=== PATIENT | female | born 1960 | race Caucasian/White ===

== ENCOUNTER 2025-02-25 18:06 | Emergency (ER) | payer BC, SELFPAY ==
--- NOTE | ~2025-02-25 | XR_ITS ---
CLINICAL HISTORY: foosh 4 view right wrist Comparison: None provided Findings: Small bony fragment of the dorsal aspect of the wrist. Mild degenerative change of the 1st carpometacarpal joint. No radiopaque foreign body. IMPRESSION: Small bony fragment of the dorsal aspect of the wrist. Triquetral fracture can not be excluded. This document has been electronically signed by: Mauro Galdamez MD on 02/25/2025 19:26:26
--- NOTE | ~2025-02-25 | XR_ITS ---
CLINICAL HISTORY: foosh 3 view right hand Comparison: None provided Findings: Bones intact. No dislocations. Mild degenerative changes of the DIP joint. No erosions. No radiopaque foreign body. IMPRESSION: 1. No acute findings This document has been electronically signed by: Mauro Galdamez MD on 02/25/2025 19:28:22
[2025-02-25 18:31] VITALS: BP 168/75; PULSE 78; RESP 16; TEMP 36.8; O2SAT 97; BMI 39.0
--- NOTE | 2025-02-25 18:37 | ED_ITS ---
HPI - Extremity Injury (Upper) General Chief Complaint: Extremity Injury, Upper Stated Complaint: ? Rt hand broken Time Seen by Provider: 02/25/25 19:37 Source: patient and RN notes reviewed Limitations: no limitations History of Present Illness HPI narrative: 64-YEAR-OLD female presents for evaluation of right wrist pain. Patient states she was walking down a hill that had gravel when the patient slipped and fell forward. Patient states she landed on her outstretched arms. This occurred at approximately 11:00 a.m.. She denies striking her head. There was no prodromal symptoms. She is right-hand dominant. Patient reports pain to the right wrist. It is worse with movement. She denies any previous injury. Patient is otherwise feeling well. 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 4/5 on the right secondary to pain. There is soft tissue swelling surrounding the dorsum of the right wrist with ecchymosis. Pronation and supination is difficult secondary to pain. Capillary refills less than 2 seconds. Radial pulses are +2 and equal bilaterally. Full range of motion of all digits. No evidence of tendon involvement. Full range of motion at the elbow. Course Course Course Narrative: 02/25/25 1837 WILLIAM Shabazz This is a Rapid Medical Examination (RME) performed by Isabella Concepcion PA-C in triage. Full HPI, ROS, assessment and treatment plan per primary provider in the Main ED. Hx: 64 yo right hand dominant F here for eval of right hand/wrist pain s/p FOOSH this morning while camping. denies HS or LOC. no thinners. baby aspirin daily. +numbness/tingling to fingers. PE/vitals: deformity to right wrist. Plan: xrs Reevaluation(s) Reevaluation #1: Patient tolerated splinting without difficulty. CMS is intact. Patient refused any additional analgesia states that she would like to continue with Tylenol. Orthopedic referral provided. Reviewed all discharge instructions. No further questions at this time. Medical Decision Making Medical Decision Making MDM Narrative: 64-year-old female with right wrist pain, x-ray concerning for a triquetral fracture. Given the patient's symptoms and x-ray findings, we will place patient in volar splint. Differential Diagnosis Differential Diagnoses: The differential diagnosis associated with the presentation includes Fracture Contusion Sprain Dislocation Radiology Impression Discussion of test interpretation with radiology: I have reviewed the radiologist's reading. Prescription Management I considered prescription management with: Pain Medication ( patient refused) Procedures Orthopedic Splinting/Casting Injury #1: Side: right Upper Extremity Injury Location: wrist Upper Extremity Immobilizer: volar splint and wrist splint Discharge Plan Discharge Clinical Impression: Fracture of wrist Patient Disposition: Home, Self-Care Instructions: Wrist Fracture in Adults (ED) Additional Instructions: Your x-ray of your wrist today is concerning for a triquetral fracture, a small bone in your wrist. Splint as directed. Do not remove or get wet. Sling for comfort. Remove your arm regularly to avoid stiffness. Rest. Ice. Elevate. Continue Tylenol as directed available [id number]. Follow up with orthopedic referral. Call tomorrow to schedule follow up appointment. Follow-up with your primary care provider. Call this week to schedule a follow- up appointment. Return to the emergency department if you have any worsening of symptoms, or any concerns. Get well soon! Referrals: [facility] [Provider Group] Referral Note: Right triquetral fracture Print Language: Irish
[2025-02-25 20:25] VITALS: BP 168/75; PULSE 78; RESP 16; TEMP 36.8; O2SAT 97
== END 2025-02-25 20:25 | disposition home or self-care (01) ==
PROVIDERS: Emergency Provider Emergency Medicine; PCP Internal Medicine
DX: S62.101A Fracture of unspecified carpal bone, right wrist, initial encounter for closed fracture (principal); W01.0XXA Fall on same level from slipping, tripping and stumbling without subsequent striking against object, initial encounter; Y93.9 Activity, unspecified; Y92.9 Unspecified place or not applicable; Y99.9 Unspecified external cause status
CPT/HCPCS: 73110; 73130; 99282; 99284

== ENCOUNTER → 2025-02-25 18:38 | Outpatient (BNV) | payer SELFPAY | PROVIDERS: Emergency Provider Emergency Medicine; PCP Internal Medicine; Visit Provider Nuclear Medicine | DX: M25.531 Pain in right wrist (principal); W18.39XA Other fall on same level, initial encounter | CPT/HCPCS: 73110; 73130 ==

== ENCOUNTER 2025-03-05 08:57 | Outpatient (AMB) | payer BC, SELFPAY ==
--- NOTE | 2025-03-05 08:20 | MHC.OFFVIS ---
Vital Signs 03/05/25 09:09 Height 5 ft 3 in Weight 220 lb BMI 39.0 Intake Visit Reasons: FC-right Fracture of wrist 02/25/25 Intake Note: Leann 64 yr old right hand dominant female presents today for a ED follow up visit from 02/25/25. As per ED note, patient states she was walking down a hill that had gravel when the patient slipped and fell forward. Patient states she landed on her outstretched arms injuring her right hand. Seen in ED where there was concerns for a triquetral fracture. Patient was splinted and referred with Dr Cole for further since. Currently states after removing her splint for xrays she feels mild pain, numbness in her middle and index finger and weakness. She is able to make a fist with tenderness/mild pain. Allergies No Known Allergies Allergy (Verified 03/05/25 09:11) HPI HPI FC-right Fracture of wrist 02/25/25: Details: Leann is a 64 year old right hand dominant Diabetic woman presents for a right Triquetral fracture, S/P fall, DOI: 02/25/25, after slipping on gravel. She was seen in the ED and placed in a volar wrist splint. She complains of mild pain which began when her splint was removed. She also complains of new numbness in her index & middle fingers, which began after her fall, along with some weakness. She says she has some mild intermittent numbness in her thumb, but this is not as bothersome. 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 Review of Systems Const All systems reviewed & are unremarkable except as noted in HPI and below Physical Exam Vital Signs: BMI result Body Mass Index 39.0 Const General: cooperative, healthy appearing and no acute distress Orientation/consciousness: patient oriented x3 HEENT Head: Yes normocephalic and Yes atraumatic Eyes EOM: EOMs intact bilaterally Resp Effort & Inspection: normal respiratory effort and able to speak in complete sentences Cardio Jugular venous distension: no JVD Skin General skin exam: turgor normal Rashes: no rashes Neuro General: patient oriented x3 Extrem Other: Evaluation of Right Upper Extremity: The patient is alert, oriented, and in no acute distress Neuro: Median, Ulnar, Radial nerves motor and sensory intact and sensation is normal to the tips of all digits Vascular: Cap refill brisk ROM: She can make a fist and extend all her digits No pain with elbow ROM Skin: No lacerations or abrasions or evidence of open fracture General: Resolving ecchymosis. Resolving swelling No Erythema or evidence of infection. Most tender over the triquetrum Tender over the 4th metacarpal base No tenderness over the distal radius, DRUJ, and distal ulna DRUJ stable on exam No snuffbox or scaphoid tubercle tenderness Minimal tenderness of the base of the 5th metacarpal No tenderness in line with the thumb, or of the 2nd and 3rd metacarpals or any of the fingers. Radiographs: 3 views of the right hand were taken and viewed by me today in clinic. 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 They show a triquetral fracture, & a nondisplaced transverse fracture line at the base of the 4th metacarpal. Psych Appearance: grossly normal Affect: normal affect Attitude: cooperative Office Procedures AMB Fracture Care Details: Fracture care triquetrum [id number], and also fracture care 4th metacarpal 11952 Fracture Billing Code: Fracture Billing Code Assessment & Plan Assessment & Plan (1) Fracture of triquetrum of right wrist: Code(s): S62.111A - Displaced fracture of triquetrum [cuneiform] bone, right wrist, initial encounter for closed fracture Category: Medical (2) Fracture of base of fourth metacarpal bone: Code(s): S62.318A - Displaced fracture of base of other metacarpal bone, initial encounter for closed fracture Category: Medical (3) Numbness and tingling in right hand: Code(s): R20.0 - Anesthesia of skin; R20.2 - Paresthesia of skin Category: Medical (4) Diabetes mellitus: Code(s): E11.9 - Type 2 diabetes mellitus without complications Category: Medical Plan Assessment & Plan: 1. Right Triquetral fracture S/P fall, DOI: 02/25/25 2. Right 4th metacarpal base fracture, nondisplaced S/P fall, DOI: 02/25/25 3. Right hand numbness Primarily the index & middle fingers, less bothersome in the thumb Symptoms intermittent, began following her fall DOI: 02/25/25 I educated her about these conditions I discussed operative and non-operative treatment options We will manage this conservatively If her symptoms of numbness does not improve in the next 4-6 weeks, she can follow up to discuss a possible NCS She was fitted for a velcro wrist splint, to be worn with daily activities, for the next 3 weeks. She can remove this when at home at rest. I discussed activity modifications, she is to lift nothing heavier than a cellphone for the next 7 weeks. She is to avoid any heavy impact activities or falls She will perform gentle finger & wrist ROM exercises at home, out of her splint She will follow up in 3 weeks, with X-rays, 3V R wrist, OOP Scribed for Racheal Cole MD by Eduard Cassidy, medical receptionist assistant, on 03/05/25 at 9:20 AM, EST. Orders: Orders XR hand RT min 3V Today M79.641 - Pain in right hand Coding Level of Care Code New Pt Level 4 (74419) Diagnoses Fracture of triquetrum of right wrist S62.111A Fracture of base of fourth metacarpal bone S62.318A Numbness and tingling in right hand R20.0; R20.2 Diabetes mellitus E11.9 CPT Codes Fracture Care - Fracture Billing Code: Fracture Billing Code ([id number])
[2025-03-05 09:09] VITALS: BMI 39.0
--- OUTSIDE RECORDS SUMMARY | 2025-03-05 09:23 | XMS_ITS | Clinical Summary ---
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 7 Active aspirin 81 mg EC tablet Take by mouth 1 (one) time each day. Active lancets lancets ONE TOUCH ULTRASOFT LANCETS Misc Test blood sugar 2 times daily 4 Active glucose blood test strip glucose blood test strips (OneTouch Ultra) strip TEST BLOOD SUGAR 3 TIMES A DAY DIRECTED 4 Active amLODIPine (NORVASC) 5 mg tablet Take 1 tablet (5 mg total) by mouth 1 (one) time each day. 90 each 3 5 01/11/20 26 Active atorvastatin (LIPITOR) 10 mg tablet Take 1 tablet (10 mg total) by mouth 1 (one) time each day. 90 each 5 01/11/20 26 Active glipiZIDE (GLUCOTROL XL) 2.5 mg 24 hr tablet Take 1 tablet (2.5 mg total) by mouth 1 (one) time each day. 90 each 3 5 01/11/20 26 Active lisinopril (PRINIVIL,ZESTR IL) 40 mg tablet Take 1 tablet (40 mg total) by mouth 1 (one) time each day. 90 each 3 5 01/11/20 26 Active metFORMIN (GLUCOPHAGE) 500 mg tablet Take 2 tablets (1,000 mg total) by mouth 2 (two) times a day with meals. 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 Instructed to avoid nephrotoxics, red meat. Follow up with nephrology Dr. Gardiner. 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 Instructed to avoid nephrotoxics, red meat. Follow up with nephrology Dr. Gardiner. Microalbuminuria 10/20/2010 Kidney donor 03/29/2007 Overview (06/30/2024): donated kidney to brother in 1983 DM (diabetes mellitus), type 2 with renal complications ([facility] V24, [facility] V28) 08/31/2005 Assessment & Plan (01/10/2025 9:18 AM EDT): Good control of diabetes. A1C: 6.3. Patient will continue with yearly Podiatric and Ophthomologic evaluations. Will continue Angiotensin Converting Enzyme Inhibitor for renal protection. Continue Glipizide, metformin. We will check hemoglobin A1c, CMP, before her next visit. Orders: Comprehensive metabolic panel; Future Hemoglobin A1c; Future Lipid panel with reflex to direct LDL; Future Assessment & Plan (09/07/2024 9:31 AM EST): Good control of diabetes. A1C: 6.7. Patient will continue with yearly Podiatric and Ophthomologic evaluations.Will continue Angiotensin Converting Enzyme Inhibitor for renal protection. Continue Glipizide, metformin. We will check hemoglobin A1c, CMP, microalbuminuria before her next visit. Orders: Comprehensive metabolic panel; Future Hemoglobin A1c; Future Lipid panel with reflex to direct LDL; Future Microalbumin creatinine urine ratio; Future Hypertension 08/31/2005 Assessment & Plan (01/10/2025 9:00 AM EDT): The patient's antihypertensive regimen is based on their underlying medical issues. At the time of this visit, the blood pressure is well controlled on lisinopril, amlodipine. The patient is instructed to follow a low sodium diet. Orders: Comprehensive metabolic panel; Future Hemoglobin A1c; Future Lipid panel with reflex to direct LDL; Future Assessment & Plan (09/07/2024 9:20 AM EST): The patient's antihypertensive regimen is based on their underlying medical issues. At the time of this visit, the blood pressure is well controlled on lisinopril, amlodipine. The patient is instructed to follow a low sodium diet. Orders: Comprehensive metabolic panel; Future Hemoglobin A1c; Future Lipid panel with reflex to direct LDL; Future Microalbumin creatinine urine ratio; Future Pure hypercholesterolemia 08/31/2005 Assessment & Plan (01/10/2025 9:18 AM EDT): Given the patients cardiac risk profile, the patient requires an LDL cholesterol of less than 70. I have instructed the patient on the principles of a low cholesterol diet and the importance of regular exercise. Continue atorvastatin 10 mg a day. Will recheck a lipid panel before her next visit. Orders: Comprehensive metabolic panel; Future Hemoglobin A1c; Future Lipid panel with reflex to direct LDL; Future Assessment & Plan (09/07/2024 9:20 AM EST): Given the patients cardiac risk profile, the patient requires an LDL cholesterol of less than 70. I have instructed the patient on the principles of a low cholesterol diet and the importance of regular exercise. Continue atorvastatin 10 mg a day. Encounters Date Type Department Care Team Description 02/26/2025 3:00 PM EDT [facility] [address] [place] [phone] Jemal Gardiner MD Stage 3b chronic kidney disease ([facility] V24, [facility] V28) (Primary Dx); Type 2 diabetes mellitus with diabetic microalbuminuria, without long-term current use of insulin ([facility] V24, [facility] V28); Kidney donor; Primary hypertension 02/14/2025 Telephone Adult [address] [phone] Harika Mistry MD Referral (Family physiatry ) 01/10/2025 8:30 AM EDT Office Visit [address] [phone] Harika Mistry MD Type 2 diabetes mellitus with diabetic microalbuminuria, without long-term current use of insulin ([facility] V24, [facility] V28) (Primary Dx); Primary hypertension; Pure hypercholesterolemia; Stage 3 chronic kidney disease, unspecified whether stage 3a or 3b CKD ([facility] V24, [facility] V28); Need for vaccination against Streptococcus pneumoniae from Last 3 Months Immunizations Name Administration Dates Next Due Influenza Quadravalent, MDCK , 0.5ml, preservative free (Flucelvax) 6mo and older 06/27/2023,05/19/2021,07/20/2018 Influenza trivalent, 0.5mL, preservative free (Fluarix; FluLaval; Fluzone) ages 6mo and older (Afluria) 3 years and older 05/07/2024,04/28/2015,05/23/2014,07/11,05/22/2012,10/10/2007,09/08/2006 ,08/31/2005 Influenza, Unspecified 06/15/2022 Pfizer SARS-CoV-2 COVID-19, mRNA, LNP-S, preservative free 06/19/2021 Pneumococcal conjugate 20 va lent (Prevnar 20, PCV 20) 2mo and older 01/10/2025 Pneumococcal polysaccharide 23 valent (Pneumovax 23) 2yo and older 06/08/2006 Td Tetanus diptheria (Tdvax) 7yo and older 08/26/2005 Tdap Tetanus diptheria acell ular pertussis (Boostrix; Adacel) 7yo and older 10/13/2022,10/02/2012 Zoster recombinant (Shingrix ) 19yo and older 09/02/2024 Surgical History Surgery Date Site/Laterality Comments OTHER SURGICAL HISTORY 1983 PROCEDURE: HI DONOR NEPHRECTOMY OPEN LIVING DONOR; COMMENT: given to brother OTHER SURGICAL HISTORY 01/01/2008 PROCEDURE: HI HYSTEROSCOPY ENDOMETRIAL ABLATION; COMMENT: and myomectomy TUBAL LIGATION PROCEDURE: HISTORICAL TUBAL LIGATION HYSTERECTOMY 11/2008 PROCEDURE: HISTORICAL TOTAL HYSTERECTOMY WITH BSO; COMMENT: atypical polypoid adenomyoma, 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 COLONOSCOPY 02/18/2012 PROCEDURE: HI COLONOSCOPY FLX DX W/COLLJ SPEC WHEN PFRMD; COMMENT: normal Medical History Medical History Date Comments Pure hypercholesterolemia 08/31/2005 DX:Pur e hypercholesterolemia Kidney donor 1983 DX:Kidney donor History of iron deficiency anemia 10/14/2006 DX:History of iron deficiency anemia CKD (chronic kidney disease) stage 2, GFR 60-89 ml/min 08/01/2013 DX:CKD (chronic kidney disea se) stage 2, GFR 60-89 ml/min DM (diabetes mellitus), type 2, uncontrolled, with renal complications 08/31/2005 DX:DM (diabetes mellitus), t ype 2, uncontrolled, with renal complications History of basal cell carcinoma 11/30/2016 DX:History of basal cell carcinoma; COMMENT: forehead Complicated migraine 01/23/2015 DX:Complica kimberly migraine Hypertension 08/31/2005 DX:Hypertension Vitamin B12 deficiency 03/19/2019 DX:Vitami n B12 deficiency Lumbar spinal stenosis 12/28/2023 DX:Lumbar spinal stenosis Family History Medical History Relation Name Comments Lung cancer Aunt 1 maternal aunt-i n her 70s-smoker Lung cancer Aunt 2 maternal aunt-n onsmoker Other: kidney disease Brother 1 strep- at 34 Hypertension Brother 2 Hypertension Brother 3 Hyperthyroidism Daughter 1 No Known Problems Daughter 2 Diabetes Father Hypertension Father Lymphoma Maternal Grandfather Hodgkin 's Diabetes Maternal Grandmother Breast cancer Mother Cataracts Mother CA breast 44-re curr @ 66 Diabetes Mother Glaucoma Mother Heart attack Mother Hypertension Mother Stroke Mother No Known Problems Paternal Grandfather pa ssed very yound, unkown cause Other: fell Paternal Grandmother Other cancer Sister oral cancer, sq uamous cell cancer Alcohol abuse Son 1 No Known Problems Son 2 Lung cancer Uncle maternal uncle- nonsmoker Throat cancer Uncle Blindness Neg Hx Colon cancer Neg Hx Macular degeneration Neg Hx Ovarian cancer Neg Hx Strabismus Neg Hx Relation Name Status Comments Aunt 1 Aunt 2 Brother 1 Brother 2 Alive Brother 3 Alive Daughter 1 Alive Daughter 2 Alive Father unknown cause Maternal Grandfather Maternal Grandmother Mother Paternal Grandfather Paternal Grandmother Sister Son 1 Son 2 Alive Uncle Social History Tobacco Use Types Packs/Day Years Used Date Smoking Tobacco: Never Smokeless Tobacco: Never Tobacco Cessation:Counseling Given: Not Answered Alcohol Use Standard Drinks/Week Comments No 0 (1 standard drink = 0.6 oz pur e alcohol) Housing Instability Answer Date Recorde d Are you worried that in the next 2 months you may not have stable housing? No 09/06/2024 Food Access & Nutrition Answer Date Rec orded Do you have access to a vari ety of food including fruits and vegetables? Yes 09/06/2024 Access to Healthcare Answer Date Record ed Within the last 3 months, ho willie many times did you visit the emergency department for your medical care? 0 09/06/2024 Health Literacy Answer Date Recorded How often do you need to hav e someone help you when you read instructions, pamphlets, or other written material from your doctor or pharmacy? Never 09/06/2024 Caregiver: How often do you need to have someone help you when you read instructions, pamphlets, or other written material from your doctor or pharmacy? Not on file 09/06/2024 Financial Risk Answer Date Recorded How hard is it for you to pa y for the very basics like food, housing, medical care, and air conditioning / heating? Not very hard 09/07/2024 Transportation Answer Date Recorded Has the lack of transportati on kept you from meetings, work, or from getting things needed for daily living? No Has the lack of transportati on kept you from medical appointments or from getting medications? No 09/06/2024 Social Isolation Answer Date Recorded How often do you feel lonely or isolated from th ose around you? Never 09/06/2024 Food Risk Answer Date Recorded Within the past 12 months we worried whether our food would run out before we got money to buy more. Never true 09/07/2024 Within the past 12 months th e food we bought just didn't last and we didn't have money to get more. Never true 09/07/2024 Dependent Care Answer Date Recorded Do you need help finding or paying for care for your loved ones. For example, child care development specialist or elderly care for an older adult? No 09/06/2024 Education Answer Date Recorded Do you think completing more education or training, like finishing a GED, going to college, or learning a trade, would be helpful for you? N/A 09/06/2024 Employment and Income Answer Date Recor ded During the last four weeks, have you been actively looking for work? No 09/06/2024 Living Situation Answer Date Recorded What is your living situation? 0 09/06/2024 Comments No Sex and Gender Information Value Date Recorded Sex Assigned at Female 06/15/2024 8:28 AM EDT Legal Sex Female 11:57 PM EST Gender Identity Female 06/15/2024 8:28 AM EDT Sexual Orientation Straight 06/15/2024 8: 28 AM EDT Obstetrics History Para Term AB IAB SAB Ectopic Multiple Livin g Live Births 4 4 4 4 Date Outcome GA Total Labor Labor/2nd/3rd Weight Sex Type Anes PTL Mary A1 A5 Name Clin Term Term Term Term Last Filed Vital Signs Vital Sign Reading Time Taken Comments Blood Pressure 120/77 02/26/2025 3:01 PM EDT Pulse 83 02/26/2025 3:01 PM EDT Temperature 36.1 C (96.9 F) 01/10/2025 8:48 AM EDT Respiratory Rate 16 01/10/2025 8:48 AM EDT Oxygen Saturation 98% 01/10/2025 8:48 AM EDT Inhaled Oxygen Concentration - - Weight 99.4 kg (219 lb 3.2 oz) 02/26/2025 3:01 P M EDT Height 160 cm (5' 3 ) 01/10/2025 8:48 AM EDT Body Mass Index 38.83 01/10/2025 8:48 AM EDT Plan of Treatment Upcoming Encounters Date Type Department Care Team (Late st Contact Info) Description 07/15/2025 9:30 AM EST Office Visit Adult Medicine [facility] [address] [place] [phone] Harika Maciel MD [address] [place] [address] 03/04/2026 2:00 PM EDT Office Visit [facility] - [facility] [address] [place] [phone] Jemal Gardiner MD [address] [place] [address] Health Maintenance Due Date Last Done Comments RSV Immunization Adult Patients (1 - Risk 60-74 years 1-dose series) 2021 Colorectal Cancer Screening: Colonoscopy 07/24/2022 HIV Screening 07/24/2022 COVID-19 Vaccine ( season) 2024 06/19/2021, 11/30/2020, 11/08/2020 Influenza Vaccine (#1) 2025 , 06/27/2023, 06/15/2022, Additional history exists Diabetes: Annual Retina Eye Exam 07/08/2025 07/08/2024, 07/05/2023, 07/05/2023 Diabetes: Blood Sugar Control Test (HGBA1C) 07/11/2025 01/08/2025, 08/22/2024, 04/27/2024, Additional history exists Diabetes: Annual Foot Exam 08/21/202508/21, 12/28/2023, 12/28/2023 Social Influencers of Health Screening 09/07/2025 09/07/2024 Diabetes: Annual Urine Albumin-Creatinine Ratio (uACR) 01/08/2026 01/08/2025, 09/09/2023, 09/09/2023 Diabetes: Annual GFR (Glomerular Filtration Rate) 01/08/2026 01/08/2025, 04/27/2024, 04/27/2024 Hypertension/CHF/CAD Annual BMP Blood Test 01/08/2026 01/08/2025, 04/27/2024, 04/27/2024 Breast Cancer Screening 09/18/2026 09/18/19, 09/09/2023, 09/04/2022, Additional history exists Cholesterol Screening (Lipid Panel) 01/08/2030 01/08/2025, 04/27/2024, 04/27/2024, Additional history exists DTaP,Tdap,and Td Vaccines (4 - Td or Tdap) 10/13/2032 10/13/2022, 10/02/2012, 08/26/2005 Hepatitis C Screening Completed 12/23/2012, 013 Zoster Vaccines Completed 09/02/2024, 06/26/2024 Depression Screening Completed 09/07/2024 Pneumococcal Vaccine: 50+ Years Completed 01/10/2025, 06/08/2006 HIB Vaccines Aged Out No longer eligi ble based on patient's age to complete this topic HPV Vaccines Aged Out No longer eligi ble based on patient's age to complete this topic Hepatitis A Vaccines Aged Out No long er eligible based on patient's age to complete this topic Hepatitis B Vaccines Aged Out No long er eligible based on patient's age to complete this topic IPV Vaccines Aged Out No longer eligi ble based on patient's age to complete this topic MMR Vaccines Aged Out No longer eligi ble based on patient's age to complete this topic Meningococcal ACWY Vaccine Aged Out N o longer eligible based on patient's age to complete this topic Meningococcal B Vaccine Aged Out No l onger eligible based on patient's age to complete this topic RSV Immunization Patients Under 20 months Aged Out No longer eligible based on patient's age to complete this topic Varicella Vaccines Aged Out No longer eligible based on patient's age to complete this topic Procedures Procedure Name Priority Date/Time Associated Diagnosis Comments COMPREHENSIVE METABOLIC PANEL Routine 01/08/2025 8:17 AM EDT Type 2 diabetes mellitus with stage 3 chronic kidney disease, without long-term current use of insulin, unspecified whether stage 3a or 3b CKD ([facility] V24, [facility] V28) Primary hypertension HEMOGLOBIN A1C Routine 01/08/2025 8:17 AM EDT Type 2 diabetes mellitus with stage 3 chronic kidney disease, without long-term current use of insulin, unspecified whether stage 3a or 3b CKD ([facility] V24, [facility] V28) Primary hypertension LIPID PANEL WITH REFLEX TO DIRECT LDL Routine 01/08/2025 8:17 AM EDT Type 2 diabetes mellitus with stage 3 chronic kidney disease, without long-term current use of insulin, unspecified whether stage 3a or 3b CKD ([facility] V24, [facility] V28) Primary hypertension MICROALBUMIN CREATININE URINE RATIO Routine 01/08/2025 8:17 AM EDT Type 2 diabetes mellitus with stage 3 chronic kidney disease, without long-term current use of insulin, unspecified whether stage 3a or 3b CKD ([facility] V24, [facility] V28) Primary hypertension MAMMO DIGITAL SCREENING W PANKAJ BILAT Routine 09/18/2024 7:47 AM EST Encounter for screening mammogram for breast cancer DIABETES FOOT EXAM Routine 12/28/2023 DIABETES EYE EXAM Routine 07/05/2023 HEPATITIS C SCREENING Routine 12/23/2012 from Last 3 Months or Most Recently Relevant to Health Maintenance Results * Lipid panel with reflex to direct LDL (01/08/2025 8:17 AM EDT) [facility] Cholesterol 129 0 - 200 mg/dL LAB CHEMISTRY METHOD 01/08/2025 10:39 AM EDT [facility] Triglycerides 75 0 - 150 mg/dL LAB CHEMISTRY METHOD 01/08/2025 10:39 AM EDT [facility] HDL 52 >=40 mg/dL LAB CHEMISTRY METHOD 01/08/2025 10:39 AM EDT [facility] LDL Calculated 62 0 - 100 mg/dL LAB CHEMISTRY METHOD 01/08/2025 10:39 AM EDT [facility] VLDL Cholesterol Javier 15 mg/dL LAB CHEMISTRY METHOD 01/08/2025 10:39 AM EDT [facility] Non HDL Chol. (LDL+VLDL) 77 <145 mg/dL LAB CHEMISTRY METHOD 01/08/2025 10:39 AM EDT [facility] Chol/HDL Ratio 2.5 0.0 - 4.4 LAB CHEMISTRY METHOD 01/08/2025 10:39 AM EDT [facility] Blood Venous blood specimen / Unknown Venipuncture / Unknown 01/08/2025 8:17 AM EDT 01/08/2025 8:17 AM EDT us Harika Maciel MD LAB BLOOD ORDERABL ES Final Result [facility] [address] [place] [address], * (ABNORMAL) Microalbumin creatinine urine ratio (01/08/2025 8:17 AM EDT) Creatinine, Urine 159.0 mg/dL LAB CHEMISTRY METHOD 01/08/2025 11:30 AM EDT [facility] Microalb, Ur 37.0(H) 0.0 - 29.0 mg/L LAB CHEMISTRY METHOD 01/08/2025 11:30 AM EDT [facility] Microalb/Crea t Ratio 23 <30 mg/g creat LAB CHEMISTRY METHOD 01/08/2025 11:30 AM EDT [facility] Urine Urine specimen obtained by clean catch procedure / Unknown Non-blood Collection / Unknown 01/08/2025 8:17 AM EDT 01/08/2025 8:17 AM EDT Harika Maciel MD LAB URINE ORDERABL ES Final Result Performing Organization Address [facility]/ZIP Co de Phone Number [facility] [address] [place] [address], [place] [phone] * Hemoglobin A1c (01/08/2025 8:17 AM EDT) [facility] Hemoglobin A1C 6.3 <6.5 % LAB CHEMISTRY METHOD 01/08/2025 11:12 AM EDT [facility] Mean Bld Glu Estim. 134 mg/dL LAB CHEMISTRY METHOD 01/08/2025 11:12 AM EDT [facility] Blood Venous blood specimen / Unknown Venipuncture / Unknown 01/08/2025 8:17 AM EDT 01/08/2025 8:17 AM EDT Harika Maciel MD LAB BLOOD ORDERABL ES Final Result Performing Organization Address [facility]/ZIP Co de Phone Number [facility] [address] [place] [address], [place] [phone] * (ABNORMAL) Comprehensive metabolic panel (01/08/2025 8:17 AM EDT) [facility] Sodium 138 133 - 145 mmol/L LAB CHEMISTRY METHOD 01/08/2025 10:39 AM EDT [facility] Potassium 4.7 3.5 - 5.5 mmol/L LAB CHEMISTRY METHOD 01/08/2025 10:39 AM EDT [facility] Chloride 108 96 - 110 mmol/L LAB CHEMISTRY METHOD 01/08/2025 10:39 AM EDT [facility] CO2 24 21 - 32 mmol/L LAB CHEMISTRY METHOD 01/08/2025 10:39 AM EDT [facility] Anion Gap 6 3 - 11 LAB CHEMISTRY METHOD 01/08/2025 10:39 AM [facility] Glucose 97 70 - 100 mg/dL LAB CHEMISTRY METHOD 01/08/2025 10:39 AM [facility] BUN 21 5 - 25 mg/dL LAB CHEMISTRY METHOD 01/08/2025 10:39 AM [facility] Creatinine 1.33(H) 0.50 - 1.10 mg/dL LAB CHEMISTRY METHOD 01/08/2025 10:39 AM [facility] eGFR 45(L) >=60 mL/min/1. 73m2 LAB CHEMISTRY METHOD 01/08/2025 10:39 AM [facility] Comment:Calculation based on the Chronic Kidney Disease Epidemiology Collaboration (CKD-EPI) equation refit without adjustment for race. BUN/Creatinine Ratio 15.8 LAB CHEMISTRY METHOD 01/08/2025 10:39 AM [facility] Calcium 9.0 8.5 - 10.5 mg/dL LAB CHEMISTRY METHOD 01/08/2025 10:39 AM [facility] AST (SGOT) 20 10 - 42 unit/L LAB CHEMISTRY METHOD 01/08/2025 10:39 AM [facility] ALT (SGPT) 24 10 - 60 unit/L LAB CHEMISTRY METHOD 01/08/2025 10:39 AM [facility] Alkaline Phosphatase 63 42 - 121 unit/L LAB CHEMISTRY METHOD 01/08/2025 10:39 AM [facility] Total Protein 6.8 6.0 - 8.0 g/dL LAB CHEMISTRY METHOD 01/08/2025 10:39 AM [facility] Albumin 3.6 3.2 - 5.0 g/dL LAB CHEMISTRY METHOD 01/08/2025 10:39 AM [facility] Total Bilirubin 0.8 0.0 - 1.4 mg/dL LAB CHEMISTRY METHOD 01/08/2025 10:39 AM EDT [facility] Blood Venous blood specimen / Unknown Venipuncture / Unknown 01/08/2025 8:17 AM EDT 01/08/2025 8:17 AM EDT us Harika Maciel MD LAB BLOOD ORDERABL ES Final Result [facility]) [facility] [address] [place] [address], [place] [phone] * MG Mammo Digital Screening w Pankaj bilat (09/18/2024 7:47 AM EST) Anatomical Region Laterality Modality Breast Bilateral Mammography 09/18/2024 11:1 4 AM EST Impressions 09/18/2024 11:16 AM EST No mammographic evidence for malignancy. BI-RADS CATEGORY: 1 - NEGATIVE RECOMMENDATION: Screening bilateral mammogram is recommended in 1 year. Mammo Location: [facility], [address] [place] [address], [id number], . -------- FINAL REPORT -------- Dictated By: Elida Justice Dictated Date: 09/18/2024 11:14 ET Assigned Physician: Elida Justice Reviewed and Electronically Signed By: Elida Justice Signed Date: 09/18/2024 11:16 ET Workstation ID: [id number] Transcribed By: Self Edit Transcribed Date: 09/18/2024 11:14 ET Narrative 09/18/2024 11:16 AM EST CLINICAL: 63 years old, Female, routine annual exam. COMPARISON: Prior mammograms, latest from 09/09/2023. TECHNIQUE: Bilateral MLO and CC views were obtained digitally with 2-D C views and 3-D mammogram (digital breast tomosynthesis). Computer-aided detection was utilized in evaluation of this exam (CAD). FINDINGS: There is no evidence of suspicious mass or architectural distortion. No worrisome calcifications are evident. There has been no significant change from prior exam(s). BREAST DENSITY: B - There are scattered areas of fibroglandular density. Procedure Note Elida Justice MD - 09/18/2024 CLINICAL: 63 years old, Female, routine annual exam. COMPARISON: Prior mammograms, latest from 09/09/2023. TECHNIQUE: Bilateral MLO and CC views were obtained digitally with 2-D Cviews and 3-D mammogram (digital breast tomosynthesis). Computer-aideddetection was utilized in evaluation of this exam (CAD). FINDINGS: There is no evidence of suspicious mass or architectural distortion. Noworrisome calcifications are evident. There has been no significantchange from prior exam(s). BREAST DENSITY: B - There are scattered areas of fibroglandular density. IMPRESSION: No mammographic evidence for malignancy. BI-RADS CATEGORY: 1 - NEGATIVE RECOMMENDATION: Screening bilateral mammogram is recommended in 1 year. Mammo Location: [facility], [address] [place] [address], [id number], . -------- FINAL REPORT -------- Dictated By: Elida Justice Dictated Date: 09/18/2024 11:14 ET Assigned Physician: lEida Justice Reviewed and Electronically Signed By: Elida Justice Signed Date: 09/18/2024 11:16 ET Workstation ID: [id number] Transcribed By: Self Edit Transcribed Date: 09/18/2024 11:14 ET Harika Maciel MD IMG BI PROCEDURES Final Result * Diabetes Foot Exam (12/28/2023) Pathologist [facility] Diabetes: Annual Foot Exam Abstracted Historical Provider HEALTH MAINTENANCE Final Result * Diabetes Eye Exam (07/05/2023) [facility] Diabetes: Annual Retina Eye Exam Abstracted Historical Provider HEALTH MAINTENANCE Final Result * Hepatitis C Screening (12/23/2012) [facility] Hepatitis C Screening Abstracted [facility] Provider HEALTH MAINTENANCE Final Result from Last 3 Months or Most Recently Relevant to Health Maintenance Insurance [facility] Care Teams 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
== END 2025-03-05 09:57 | disposition home or self-care (01) ==
LOC: HO.HOS 08:57
PROVIDERS: PCP Internal Medicine; Visit Provider Orthopaedic Surgery
DX: S62.111A Displaced fracture of triquetrum [cuneiform] bone, right wrist, initial encounter for closed fracture (principal); S62.318A Displaced fracture of base of other metacarpal bone, initial encounter for closed fracture; R20.0 Anesthesia of skin; R20.2 Paresthesia of skin; E11.9 Type 2 diabetes mellitus without complications
CPT/HCPCS: 99203

== ENCOUNTER → 2025-03-05 08:58 | Outpatient (BNV) | payer BC, SELFPAY | PROVIDERS: Visit Provider Radiology Diagnostic Radiology | DX: M19.041 Primary osteoarthritis, right hand (principal) | CPT/HCPCS: 73130 ==

== ENCOUNTER 2025-03-05 10:02 | Outpatient (REF) | payer BC, SELFPAY ==
--- NOTE | ~2025-03-05 | XR_ITS ---
EXAMINATION: XR HAND, RIGHT CLINICAL INFORMATION: M79.641 - Pain in right hand COMPARISON: None available. TECHNIQUE: PA, lateral, and oblique views of the right hand. FINDINGS: There is moderate to severe narrowing of the DIP joints with moderate sized marginal osteophytes. PIP joints are preserved. The thumb demonstrates moderate asymmetric narrowing of the IP joint with medium sized marginal osteophytes. Mild arteriovascular calcifications are present at the level of the wrist. XR/XR hand RT min 3V IMPRESSION: Moderate osteoarthritis primarily affecting the DIP joints of fingers and IP joint of the thumb. Electronically signed by: Nicola Rain MD 03/05/2025 09:57 AM EDT
--- OUTSIDE RECORDS SUMMARY | 2025-03-06 10:54 | XMS_ITS | Clinical Summary ---
Author Organization [address] [facility] Address [address] [place] [address] Phone Care Team Providers Care Tourist Information Officer Name Role Phone Harika Maciel MD Primary [...] Chronic kidney disease, stag e III (moderate) ([facility] V24, [facility] V28) 08/01/2013 Overview (06/30/2024): GFR 50s at [...] (diabetes mellitus), type 2 with renal complications ([facility] V24, [facility] V28) 08/31/2005 Assessment & Plan (01/10/2025 9:18 [...] 3:00 PM EDT [facility] [address] [place] [phone] Jemal Gardiner MD Stage 3b chronic kidney disease ([facility] V24, [facility] V28) (Primary Dx); Type 2 diabetes mellitus with diabetic microalbuminuria, without long-term current use of insulin ([facility] V24, [facility] V28); Kidney donor; Primary hypertension 02/14/2025 Telephone Adult [address] [phone] Harika Mistry MD Referral (Family physiatry ) 01/10/2025 8:30 AM EDT Office Visit [address] [phone] Harika Mistry MD Type 2 diabetes mellitus with diabetic microalbuminuria, without long-term current use of insulin ([facility] V24, [facility] V28) (Primary Dx); Primary hypertension; Pure hypercholesterolemia; Stage 3 chronic kidney disease, unspecified whether stage 3a or 3b CKD ([facility] V24, [facility] V28); Need for vaccination against Streptococcus pneumoniae [...] Site/Laterality Comments OTHER SURGICAL HISTORY 1983 PROCEDURE: ME DONOR NEPHRECTOMY OPEN LIVING DONOR; COMMENT: given to brother OTHER SURGICAL HISTORY 01/01/2008 PROCEDURE: ME HYSTEROSCOPY ENDOMETRIAL ABLATION; COMMENT: and myomectomy TUBAL LIGATION PROCEDURE: HISTORICAL TUBAL LIGATION HYSTERECTOMY 11/2008 PROCEDURE: HISTORICAL TOTAL HYSTERECTOMY WITH BSO; COMMENT: atypical polypoid adenomyoma, 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 For example, child therapist or elderly care for an older adult? [...] 9:30 AM EST Office Visit Adult Medicine [facility] [address] [place] [phone] Harika Maciel MD [address] [place] [address] 03/04/2026 2:00 PM EDT Office Visit Nephrology - [facility] [address] [place] [phone] Jemal Gardiner MD [address] [place] [phone] Health Maintenance Due Date Last Done Comments [...] unspecified whether stage 3a or 3b CKD ([facility] V24, [facility] V28) Primary hypertension HEMOGLOBIN A1C Routine 01/08/2025 8:17 AM EDT Type 2 diabetes mellitus with stage 3 chronic kidney disease, without long-term current use of insulin, unspecified whether stage 3a or 3b CKD ([facility] V24, [facility] V28) Primary hypertension LIPID PANEL WITH REFLEX TO DIRECT LDL Routine 01/08/2025 8:17 AM EDT Type 2 diabetes mellitus with stage 3 chronic kidney disease, without long-term current use of insulin, unspecified whether stage 3a or 3b CKD ([facility] V24, [facility] V28) Primary hypertension MICROALBUMIN CREATININE URINE RATIO Routine 01/08/2025 8:17 AM EDT Type 2 diabetes mellitus with stage 3 chronic kidney disease, without long-term current use of insulin, unspecified whether stage 3a or 3b CKD ([facility] V24, [facility] V28) Primary hypertension MAMMO DIGITAL SCREENING W PANKAJ BILAT Routine 09/18/2024 7:47 AM EST Encounter for screening mammogram for breast cancer DIABETES FOOT EXAM Routine 12/28/2023 DIABETES EYE EXAM Routine 07/05/2023 HEPATITIS C SCREENING Routine 12/23/2012 from Last 3 Months or Most Recently Relevant to Health Maintenance Results * Lipid panel with reflex to direct LDL (01/08/2025 8:17 AM EDT) [facility] Cholesterol 129 0 - 200 mg/dL LAB CHEMISTRY METHOD 01/08/2025 10:39 AM EDT [facility] Triglycerides 75 0 - 150 mg/dL LAB CHEMISTRY METHOD 01/08/2025 10:39 AM EDT [facility] HDL 52 >=40 mg/dL LAB CHEMISTRY METHOD 01/08/2025 10:39 AM EDT [facility] LDL Calculated 62 0 - 100 mg/dL LAB CHEMISTRY METHOD 01/08/2025 10:39 AM EDT [facility] VLDL Cholesterol Javier 15 mg/dL LAB CHEMISTRY METHOD 01/08/2025 10:39 AM EDT [facility] Non HDL Chol. (LDL+VLDL) 77 <145 mg/dL LAB CHEMISTRY METHOD 01/08/2025 10:39 AM EDT [facility] Chol/HDL Ratio 2.5 0.0 - 4.4 LAB CHEMISTRY METHOD 01/08/2025 10:39 AM EDT [facility] Blood Venous blood specimen / Unknown Venipuncture / Unknown 01/08/2025 8:17 AM EDT 01/08/2025 8:17 AM EDT us Harika Maciel MD LAB BLOOD ORDERABL ES Final Result [facility] [address] [place] [address], * (ABNORMAL) Microalbumin creatinine urine ratio (01/08/2025 8:17 AM EDT) Creatinine, Urine 159.0 mg/dL LAB CHEMISTRY METHOD 01/08/2025 11:30 AM EDT [facility] Microalb, Ur 37.0(H) 0.0 - 29.0 mg/L LAB CHEMISTRY METHOD 01/08/2025 11:30 AM EDT [facility] Microalb/Crea t Ratio 23 <30 mg/g creat LAB CHEMISTRY METHOD 01/08/2025 11:30 AM EDT [facility] Urine Urine specimen obtained by clean catch procedure / Unknown Non-blood Collection / Unknown 01/08/2025 8:17 AM EDT 01/08/2025 8:17 AM EDT Harika Maciel MD LAB URINE ORDERABL ES Final Result Performing Organization Address [facility]/ZIP Co de Phone Number [facility] [address] [place] [address], [place] [phone] * Hemoglobin A1c (01/08/2025 8:17 AM EDT) [facility] Hemoglobin A1C 6.3 <6.5 % LAB CHEMISTRY METHOD 01/08/2025 11:12 AM EDT [facility] Mean Bld Glu Estim. 134 mg/dL LAB CHEMISTRY METHOD 01/08/2025 11:12 AM EDT [facility] Blood Venous blood specimen / Unknown Venipuncture / Unknown 01/08/2025 8:17 AM EDT 01/08/2025 8:17 AM EDT Harika Maciel MD LAB BLOOD ORDERABL ES Final Result Performing Organization Address [facility]/ZIP Co de Phone Number [facility] [address] [place] [address], [place] [phone] * (ABNORMAL) Comprehensive metabolic panel (01/08/2025 8:17 AM EDT) [facility] Sodium 138 133 - 145 mmol/L LAB CHEMISTRY METHOD 01/08/2025 10:39 AM EDT [facility] Potassium 4.7 3.5 - 5.5 mmol/L LAB CHEMISTRY METHOD 01/08/2025 10:39 AM EDT [facility] Chloride 108 96 - 110 mmol/L LAB CHEMISTRY METHOD 01/08/2025 10:39 AM EDT [facility] CO2 24 21 - 32 mmol/L LAB CHEMISTRY METHOD 01/08/2025 10:39 AM EDT [facility] Anion Gap 6 3 - 11 LAB CHEMISTRY METHOD 01/08/2025 10:39 AM [facility] Glucose 97 70 - 100 mg/dL LAB CHEMISTRY METHOD 01/08/2025 10:39 AM [facility] BUN 21 5 - 25 mg/dL LAB CHEMISTRY METHOD 01/08/2025 10:39 AM [facility] Creatinine 1.33(H) 0.50 - 1.10 mg/dL LAB CHEMISTRY METHOD 01/08/2025 10:39 AM [facility] eGFR 45(L) >=60 mL/min/1. 73m2 LAB CHEMISTRY METHOD 01/08/2025 10:39 AM [facility] Comment:Calculation based on the Chronic Kidney Disease Epidemiology Collaboration (CKD-EPI) equation refit without adjustment for race. BUN/Creatinine Ratio 15.8 LAB CHEMISTRY METHOD 01/08/2025 10:39 AM [facility] Calcium 9.0 8.5 - 10.5 mg/dL LAB CHEMISTRY METHOD 01/08/2025 10:39 AM [facility] AST (SGOT) 20 10 - 42 unit/L LAB CHEMISTRY METHOD 01/08/2025 10:39 AM [facility] ALT (SGPT) 24 10 - 60 unit/L LAB CHEMISTRY METHOD 01/08/2025 10:39 AM [facility] Alkaline Phosphatase 63 42 - 121 unit/L LAB CHEMISTRY METHOD 01/08/2025 10:39 AM [facility] Total Protein 6.8 6.0 - 8.0 g/dL LAB CHEMISTRY METHOD 01/08/2025 10:39 AM [facility] Albumin 3.6 3.2 - 5.0 g/dL LAB CHEMISTRY METHOD 01/08/2025 10:39 AM [facility] Total Bilirubin 0.8 0.0 - 1.4 mg/dL LAB CHEMISTRY METHOD 01/08/2025 10:39 AM EDT [facility] Blood Venous blood specimen / Unknown Venipuncture / Unknown 01/08/2025 8:17 AM EDT 01/08/2025 8:17 AM EDT us Harika Maciel MD LAB BLOOD ORDERABL ES Final Result [facility]) [facility] [address] [place] [address], [place] [phone] * MG Mammo Digital Screening w Pankaj bilat (09/18/2024 7:47 AM EST) Anatomical Region Laterality Modality Breast Bilateral Mammography 09/18/2024 11:1 4 AM EST Impressions 09/18/2024 11:16 AM EST No mammographic evidence for malignancy. BI-RADS CATEGORY: 1 - NEGATIVE RECOMMENDATION: Screening bilateral mammogram is recommended in 1 year. Mammo Location: [facility], [address] [place] [address], [id number], . -------- FINAL REPORT -------- Dictated By: Elida Justice Dictated Date: 09/18/2024 11:14 ET Assigned Physician: Elida Justice Reviewed and Electronically Signed By: Elida Justice Signed Date: 09/18/2024 11:16 ET Workstation ID: [id number] Transcribed By: Self Edit Transcribed Date: 09/18/2024 [...] is recommended in 1 year. Mammo Location: [facility], [address] [place] [address], [phone], . -------- FINAL REPORT -------- Dictated By: Elida Justice Dictated Date: 09/18/2024 11:14 ET Assigned Physician: Elida Justice Reviewed and Electronically Signed By: Elida Justice Signed Date: 09/18/2024 11:16 ET Workstation ID: [id number] Transcribed By: Self Edit Transcribed Date: 09/18/2024 11:14 ET Harika Maciel MD IMG BI PROCEDURES Final Result * Diabetes Foot Exam (12/28/2023) Pathologist [facility] Diabetes: Annual Foot Exam Abstracted Historical Provider HEALTH MAINTENANCE Final Result * Diabetes Eye Exam (07/05/2023) [facility] Diabetes: Annual Retina Eye Exam Abstracted Historical Provider HEALTH MAINTENANCE Final Result * Hepatitis C Screening (12/23/2012) [facility] Hepatitis C Screening Abstracted [facility] Provider HEALTH MAINTENANCE Final Result from Last 3 Months or Most Recently Relevant to Health Maintenance Insurance [facility] Care Teams Tourist Information Officer Relationship Specialty Start Date End Date Harika Maciel MD [address] [place] [id number] PCP - General Internal Medicine 09/18/24
--- OUTSIDE RECORDS SUMMARY | 2025-03-06 10:54 | XMS_ITS ---
Author Name [facility] Organization Unknown Care Team Organization Name Specialty Phone Email Start Date End Da te [facility] Harika Abarca Primary Care 10/20/2022 04/02/2024 [facility] Dorothy Hearn Primary Care 08/23/202203/15 [facility] Ashlie PROVIDER Primary Care 06/22/202203/15
== END 2025-03-05 10:03 | disposition home or self-care (01) ==
LOC: HO.HOSX 10:02
PROVIDERS: Visit Provider Orthopaedic Surgery
DX: S62.111D Displaced fracture of triquetrum [cuneiform] bone, right wrist, subsequent encounter for fracture with routine healing (principal); S62.344D Nondisplaced fracture of base of fourth metacarpal bone, right hand, subsequent encounter for fracture with routine healing; R20.0 Anesthesia of skin; R20.2 Paresthesia of skin; E11.9 Type 2 diabetes mellitus without complications; W01.0XXD Fall on same level from slipping, tripping and stumbling without subsequent striking against object, subsequent encounter; Y93.01 Activity, walking, marching and hiking; Z68.39 Body mass index [BMI] 39.0-39.9, adult
CPT/HCPCS: 73130

== ENCOUNTER 2025-04-02 09:16 | Outpatient (REF) | payer BC, SELFPAY ==
--- NOTE | ~2025-04-02 | XR_ITS ---
EXAMINATION: XR WRIST, RIGHT CLINICAL INFORMATION: M25.531 - Pain in right wrist COMPARISON: February 25, 2025 TECHNIQUE: PA, lateral, and oblique views of the right wrist. FINDINGS: No acute cortical disruption or gross malalignment. No metallic or radiopaque foreign body. No subcutaneous emphysema. Degenerative changes in the interphalangeal joints of the first digit and the interphalangeal joints of the fourth and fifth digits no fully included in the [id number]. XR/XR wrist RT min 3V IMPRESSION: No acute fracture or dislocation. Osteoarthritis/osteoarthrosis, digits of the right hand. Electronically signed by: Fredrick Ying MD 04/02/2025 09:51 AM EDT
--- OUTSIDE RECORDS SUMMARY | 2025-04-03 09:57 | XMS_ITS | Clinical Summary ---
Author Organization 175 [facility] Address [address] [place] [address] Phone Care Team Providers Care Cabin Service Agent Name Role Phone Harika Maciel MD Primary [...] day. 90 each 5 01/11/20 26 Active lisinopril (PRINIVIL,ZESTR IL) [...] Chronic kidney disease, stag e III (moderate) ([facility] V24, [facility] V28) 08/01/2013 Overview (06/30/2024): GFR 50s at [...] (diabetes mellitus), type 2 with renal complications ([facility] V24, [facility] V28) 08/31/2005 Assessment & Plan (01/10/2025 9:18 [...] 3:00 PM EDT [facility] [address] [place] [phone] Jemal Gardiner MD Stage 3b chronic kidney disease ([facility] V24, [facility] V28) (Primary Dx); Type 2 diabetes mellitus with diabetic microalbuminuria, without long-term current use of insulin ([facility] V24, [facility] V28); Kidney donor; Primary hypertension 02/14/2025 Telephone Adult [address] [phone] Harika Mistry MD Referral (Family physiatry ) 01/10/2025 8:30 AM EDT Office Visit [address] [phone] Harika Mistry MD Type 2 diabetes mellitus with diabetic microalbuminuria, without long-term current use of insulin ([facility] V24, [facility] V28) (Primary Dx); Primary hypertension; Pure hypercholesterolemia; Stage 3 chronic kidney disease, unspecified whether stage 3a or 3b CKD ([facility] V24, [facility] V28); Need for vaccination against Streptococcus pneumoniae [...] Site/Laterality Comments OTHER SURGICAL HISTORY 1983 PROCEDURE: [place] DONOR NEPHRECTOMY OPEN LIVING DONOR; COMMENT: given to brother OTHER SURGICAL HISTORY 01/01/2008 PROCEDURE: [place] HYSTEROSCOPY ENDOMETRIAL ABLATION; COMMENT: and myomectomy TUBAL LIGATION PROCEDURE: HISTORICAL TUBAL LIGATION HYSTERECTOMY 11/2008 PROCEDURE: HISTORICAL TOTAL HYSTERECTOMY WITH BSO; COMMENT: atypical polypoid adenomyoma, 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 For example, early childhood lead teacher or elderly care for an older adult? [...] 9:30 AM EST Office Visit Adult Medicine [facility] [address] [place] [address] Harika Maciel MD [address] [place] [address] 03/04/2026 2:00 PM EDT Office Visit Nephrology - [facility] [address] [place] [phone] Jemal Gardiner MD [address] [place] [address] Health Maintenance Due Date Last Done Comments [...] unspecified whether stage 3a or 3b CKD ([facility] V24, [facility] V28) Primary hypertension HEMOGLOBIN A1C Routine 01/08/2025 8:17 AM EDT Type 2 diabetes mellitus with stage 3 chronic kidney disease, without long-term current use of insulin, unspecified whether stage 3a or 3b CKD ([facility] V24, [facility] V28) Primary hypertension LIPID PANEL WITH REFLEX TO DIRECT LDL Routine 01/08/2025 8:17 AM EDT Type 2 diabetes mellitus with stage 3 chronic kidney disease, without long-term current use of insulin, unspecified whether stage 3a or 3b CKD ([facility] V24, [facility] V28) Primary hypertension MICROALBUMIN CREATININE URINE RATIO Routine 01/08/2025 8:17 AM EDT Type 2 diabetes mellitus with stage 3 chronic kidney disease, without long-term current use of insulin, unspecified whether stage 3a or 3b CKD ([facility] V24, [facility] V28) Primary hypertension MAMMO DIGITAL SCREENING W PANKAJ BILAT Routine 09/18/2024 7:47 AM EST Encounter for screening mammogram for breast cancer DIABETES FOOT EXAM Routine 12/28/2023 DIABETES EYE EXAM Routine 07/05/2023 HEPATITIS C SCREENING Routine 12/23/2012 from Last 3 Months or Most Recently Relevant to Health Maintenance Results * Lipid panel with reflex to direct LDL (01/08/2025 8:17 AM EDT) [facility] Cholesterol 129 0 - 200 mg/dL LAB CHEMISTRY METHOD 01/08/2025 10:39 AM EDT [facility] Triglycerides 75 0 - 150 mg/dL LAB CHEMISTRY METHOD 01/08/2025 10:39 AM EDT [facility] HDL 52 >=40 mg/dL LAB CHEMISTRY METHOD 01/08/2025 10:39 AM EDT [facility] LDL Calculated 62 0 - 100 mg/dL LAB CHEMISTRY METHOD 01/08/2025 10:39 AM EDT [facility] VLDL Cholesterol Javier 15 mg/dL LAB CHEMISTRY METHOD 01/08/2025 10:39 AM EDT [facility] Non HDL Chol. (LDL+VLDL) 77 <145 mg/dL LAB CHEMISTRY METHOD 01/08/2025 10:39 AM EDT [facility] Chol/HDL Ratio 2.5 0.0 - 4.4 LAB CHEMISTRY METHOD 01/08/2025 10:39 AM EDT [facility] Blood Venous blood specimen / Unknown Venipuncture / Unknown 01/08/2025 8:17 AM EDT 01/08/2025 8:17 AM EDT us Harika Maciel MD LAB BLOOD ORDERABL ES Final Result [facility] [address] [place] [address], * (ABNORMAL) Microalbumin creatinine urine ratio (01/08/2025 8:17 AM EDT) Creatinine, Urine 159.0 mg/dL LAB CHEMISTRY METHOD 01/08/2025 11:30 AM EDT [facility] Microalb, Ur 37.0(H) 0.0 - 29.0 mg/L LAB CHEMISTRY METHOD 01/08/2025 11:30 AM EDT [facility] Microalb/Crea t Ratio 23 <30 mg/g creat LAB CHEMISTRY METHOD 01/08/2025 11:30 AM EDT [facility] Urine Urine specimen obtained by clean catch procedure / Unknown Non-blood Collection / Unknown 01/08/2025 8:17 AM EDT 01/08/2025 8:17 AM EDT Harika Maciel MD LAB URINE ORDERABL ES Final Result Performing Organization Address [facility]/ZIP Co de Phone Number [facility] [address] [place] [address], [place] [phone] * Hemoglobin A1c (01/08/2025 8:17 AM EDT) [facility] Hemoglobin A1C 6.3 <6.5 % LAB CHEMISTRY METHOD 01/08/2025 11:12 AM EDT [facility] Mean Bld Glu Estim. 134 mg/dL LAB CHEMISTRY METHOD 01/08/2025 11:12 AM EDT [facility] Blood Venous blood specimen / Unknown Venipuncture / Unknown 01/08/2025 8:17 AM EDT 01/08/2025 8:17 AM EDT Harika Maciel MD LAB BLOOD ORDERABL ES Final Result Performing Organization Address [facility]/ZIP Co de Phone Number [facility] [address] [place] [address], [place] [phone] * (ABNORMAL) Comprehensive metabolic panel (01/08/2025 8:17 AM EDT) [facility] Sodium 138 133 - 145 mmol/L LAB CHEMISTRY METHOD 01/08/2025 10:39 AM EDT [facility] Potassium 4.7 3.5 - 5.5 mmol/L LAB CHEMISTRY METHOD 01/08/2025 10:39 AM EDT [facility] Chloride 108 96 - 110 mmol/L LAB CHEMISTRY METHOD 01/08/2025 10:39 AM EDT [facility] CO2 24 21 - 32 mmol/L LAB CHEMISTRY METHOD 01/08/2025 10:39 AM EDT [facility] Anion Gap 6 3 - 11 LAB CHEMISTRY METHOD 01/08/2025 10:39 AM [facility] Glucose 97 70 - 100 mg/dL LAB CHEMISTRY METHOD 01/08/2025 10:39 AM [facility] BUN 21 5 - 25 mg/dL LAB CHEMISTRY METHOD 01/08/2025 10:39 AM [facility] Creatinine 1.33(H) 0.50 - 1.10 mg/dL LAB CHEMISTRY METHOD 01/08/2025 10:39 AM [facility] eGFR 45(L) >=60 mL/min/1. 73m2 LAB CHEMISTRY METHOD 01/08/2025 10:39 AM [facility] Comment:Calculation based on the Chronic Kidney Disease Epidemiology Collaboration (CKD-EPI) equation refit without adjustment for race. BUN/Creatinine Ratio 15.8 LAB CHEMISTRY METHOD 01/08/2025 10:39 AM [facility] Calcium 9.0 8.5 - 10.5 mg/dL LAB CHEMISTRY METHOD 01/08/2025 10:39 AM [facility] AST (SGOT) 20 10 - 42 unit/L LAB CHEMISTRY METHOD 01/08/2025 10:39 AM [facility] ALT (SGPT) 24 10 - 60 unit/L LAB CHEMISTRY METHOD 01/08/2025 10:39 AM [facility] Alkaline Phosphatase 63 42 - 121 unit/L LAB CHEMISTRY METHOD 01/08/2025 10:39 AM [facility] Total Protein 6.8 6.0 - 8.0 g/dL LAB CHEMISTRY METHOD 01/08/2025 10:39 AM [facility] Albumin 3.6 3.2 - 5.0 g/dL LAB CHEMISTRY METHOD 01/08/2025 10:39 AM [facility] Total Bilirubin 0.8 0.0 - 1.4 mg/dL LAB CHEMISTRY METHOD 01/08/2025 10:39 AM EDT [facility] Blood Venous blood specimen / Unknown Venipuncture / Unknown 01/08/2025 8:17 AM EDT 01/08/2025 8:17 AM EDT us Harika Maciel MD LAB BLOOD ORDERABL ES Final Result [facility]) [facility] [address] [place] [address], [place] [phone] * MG Mammo Digital Screening w Pankaj bilat (09/18/2024 7:47 AM EST) Anatomical Region Laterality Modality Breast Bilateral Mammography 09/18/2024 11:1 4 AM EST Impressions 09/18/2024 11:16 AM EST No mammographic evidence for malignancy. BI-RADS CATEGORY: 1 - NEGATIVE RECOMMENDATION: Screening bilateral mammogram is recommended in 1 year. Mammo Location: [facility], [address] [place] [address], [phone], . -------- FINAL REPORT -------- Dictated By: Elida Justice Dictated Date: 09/18/2024 11:14 ET Assigned Physician: Elida Justice Reviewed and Electronically Signed By: Elida Justice Signed Date: 09/18/2024 11:16 ET Workstation ID: [id number] Transcribed By: Self Edit Transcribed Date: 09/18/2024 [...] is recommended in 1 year. Mammo Location: [facility], [address] [place] [address], [id number], . -------- FINAL REPORT -------- Dictated By: Elida Justice Dictated Date: 09/18/2024 11:14 ET Assigned Physician: Elida Justice Reviewed and Electronically Signed By: Elida Justice Signed Date: 09/18/2024 11:16 ET Workstation ID: [id number] Transcribed By: Self Edit Transcribed Date: 09/18/2024 11:14 ET Harika Maciel MD IMG BI PROCEDURES Final Result * Diabetes Foot Exam (12/28/2023) Pathologist [facility] Diabetes: Annual Foot Exam Abstracted Historical Provider HEALTH MAINTENANCE Final Result * Diabetes Eye Exam (07/05/2023) [facility] Diabetes: Annual Retina Eye Exam Abstracted Historical Provider HEALTH MAINTENANCE Final Result * Hepatitis C Screening (12/23/2012) [facility] Hepatitis C Screening Abstracted [facility] Provider HEALTH MAINTENANCE Final Result from Last 3 Months or Most Recently Relevant to Health Maintenance Insurance [facility] Care Teams Cabin Service Agent Relationship Specialty Start Date End Date Harika Maciel MD [address] [place] [phone] PCP - General Internal Medicine 09/18/24
== END 2025-04-02 09:17 | disposition home or self-care (01) ==
LOC: HO.HOSX 09:16
PROVIDERS: Visit Provider Orthopaedic Surgery
DX: S62.111D Displaced fracture of triquetrum [cuneiform] bone, right wrist, subsequent encounter for fracture with routine healing (principal); S62.318D Displaced fracture of base of other metacarpal bone, subsequent encounter for fracture with routine healing; E11.9 Type 2 diabetes mellitus without complications; M25.531 Pain in right wrist; R20.0 Anesthesia of skin; R20.2 Paresthesia of skin; W19.XXXD Unspecified fall, subsequent encounter
CPT/HCPCS: 73110

== ENCOUNTER 2025-04-02 09:38 | Outpatient (AMB) | payer BC, SELFPAY ==
--- NOTE | 2025-04-02 09:45 | A.OFFVIS_ITS ---
Vital Signs 04/02/25 09:46 Height 5 ft 3 in Weight 220 lb BMI 39.0 Intake Visit Reasons: OV-right Fracture of wrist 02/25/25 With Xray Intake Note: Leann 64 yr old - hand dominant female who works at [employer], presents today for her follow up visit for her right triquetral fracture & Right 4th metacarpal base fracture S/P fall, DOI: 02/25/25. At her last visit she was fitted for a velcro wrist and was advise to wear with daily activities and to remove to work on gentle ROM. Currently states she has not attended O.T and has been working on her own home exercises with improvement. Allergies No Known Allergies Allergy (Verified 04/02/25 09:55) HPI HPI OV-right Fracture of wrist 02/25/25 With Xray: Details: Leann is a 64 year old right hand dominant Diabetic woman returns for her right Triquetral & 4th metacarpal fracture fracture, S/P fall, DOI: 02/25/25, after slipping on gravel. She was seen in the ED and placed in a volar wrist splint. She says she is doing much better . She has been working on ROM exercises at home. 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 Resolved swelling No Erythema or evidence of infection. No tenderness over the triquetrum No tenderness of the base of the 4th or 5th metacarpal Radiographs: 3 views of the right wrist were taken & viewed by me today in clinic. They show a triquetral fracture, & a nondisplaced transverse fracture line at the base of the 4th metacarpal with satisfactory fracture alignment and some evidence of interval bony healing Assessment & Plan Assessment & Plan (1) Fracture of triquetrum of right wrist: Code(s): S62.111A - Displaced fracture of triquetrum [cuneiform] bone, right wrist, initial encounter for closed fracture Category: Medical (2) Fracture of base of fourth metacarpal bone: Code(s): S62.318A - Displaced fracture of base of other metacarpal bone, initial encounter for closed fracture Category: Medical (3) Numbness and tingling in right hand: Code(s): R20.0 - Anesthesia of skin; R20.2 - Paresthesia of skin Category: Medical (4) Diabetes mellitus: Code(s): E11.9 - Type 2 diabetes mellitus without complications Category: Medical Plan Assessment & Plan: 1. Right Triquetral fracture S/P fall, DOI: 02/25/25 2. Right 4th metacarpal base fracture, nondisplaced S/P fall, DOI: 02/25/25 3. Right hand numbness Primarily the index & middle fingers, less bothersome in the thumb Symptoms intermittent and improving DOI: 02/25/25 I educated her about these conditions This appears to be healing well. She has been managed in a splint. Her numbness has been improving well and is only very mild & intermittent at this time. I educated her about the symptoms of carpal tunnel syndrome, and she knows that if she has daily problems with numbness and tingling that she should let us know. She will discontinue her splint at this time. She should still wear it when out of the house for the next few weeks I discussed activity modifications, she is able to use her hand for lightweight activities and slowly increase her activity level over the next few weeks. She is to avoid any heavy impact activities or falls She will perform finger & wrist ROM exercises at home, She will follow up prn Scribed for Racheal Cole MD by Eduard Cassidy, medical appointment scheduler, on 04/02/25 at 10:00 AM, EST. Orders: Orders XR wrist RT min 3V Today M25.531 - Pain in right wrist Coding Level of Care Code Global (50774) Diagnoses Fracture of triquetrum of right wrist S62.111A Fracture of base of fourth metacarpal bone S62.318A Numbness and tingling in right hand R20.0; R20.2 Diabetes mellitus E11.9
[2025-04-02 09:46] VITALS: BMI 39.0
--- OUTSIDE RECORDS SUMMARY | 2025-04-02 10:43 | XMS_ITS | Clinical Summary ---
Author Organization 175 [facility] Address [address] [place] [address] Phone Care Team Providers Care Lease Administration Supervisor Name Role Phone Harika Maciel MD Primary [...] Chronic kidney disease, stag e III (moderate) ([facility] V24, [facility] V28) 08/01/2013 Overview (06/30/2024): GFR 50s at [...] (diabetes mellitus), type 2 with renal complications ([facility] V24, [facility] V28) 08/31/2005 Assessment & Plan (01/10/2025 9:18 [...] 3:00 PM EDT [facility] [address] [place] [phone] Jemal Gardiner MD Stage 3b chronic kidney disease ([facility] V24, [facility] V28) (Primary Dx); Type 2 diabetes mellitus with diabetic microalbuminuria, without long-term current use of insulin ([facility] V24, [facility] V28); Kidney donor; Primary hypertension 02/14/2025 Telephone Adult [address] [phone] Harika Mistry MD Referral (Family physiatry ) 01/10/2025 8:30 AM EDT Office Visit [address] [phone] Harika Mistry MD Type 2 diabetes mellitus with diabetic microalbuminuria, without long-term current use of insulin ([facility] V24, [facility] V28) (Primary Dx); Primary hypertension; Pure hypercholesterolemia; Stage 3 chronic kidney disease, unspecified whether stage 3a or 3b CKD ([facility] V24, [facility] V28); Need for vaccination against Streptococcus pneumoniae [...] Site/Laterality Comments OTHER SURGICAL HISTORY 1983 PROCEDURE: [place] DONOR NEPHRECTOMY OPEN LIVING DONOR; COMMENT: given to brother OTHER SURGICAL HISTORY 01/01/2008 PROCEDURE: [place] HYSTEROSCOPY ENDOMETRIAL ABLATION; COMMENT: and myomectomy TUBAL LIGATION PROCEDURE: HISTORICAL TUBAL LIGATION HYSTERECTOMY 11/2008 PROCEDURE: HISTORICAL TOTAL HYSTERECTOMY WITH BSO; COMMENT: atypical polypoid adenomyoma, 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 For example, child welfare manager or elderly care for an older adult? [...] 9:30 AM EST Office Visit Adult [facility] [address] [place] [address] Harika Maciel MD [address] [place] [address] 03/04/2026 2:00 PM EDT Office Visit Nephrology - [facility] [address] [place] [phone] Jemal Gardiner MD [address] [place] [phone] Health Maintenance Due Date Last Done Comments [...] unspecified whether stage 3a or 3b CKD ([facility] V24, [facility] V28) Primary hypertension HEMOGLOBIN A1C Routine 01/08/2025 8:17 AM EDT Type 2 diabetes mellitus with stage 3 chronic kidney disease, without long-term current use of insulin, unspecified whether stage 3a or 3b CKD ([facility] V24, [facility] V28) Primary hypertension LIPID PANEL WITH REFLEX TO DIRECT LDL Routine 01/08/2025 8:17 AM EDT Type 2 diabetes mellitus with stage 3 chronic kidney disease, without long-term current use of insulin, unspecified whether stage 3a or 3b CKD ([facility] V24, [facility] V28) Primary hypertension MICROALBUMIN CREATININE URINE RATIO Routine 01/08/2025 8:17 AM EDT Type 2 diabetes mellitus with stage 3 chronic kidney disease, without long-term current use of insulin, unspecified whether stage 3a or 3b CKD ([facility] V24, [facility] V28) Primary hypertension MAMMO DIGITAL SCREENING W PANKAJ BILAT Routine 09/18/2024 7:47 AM EST Encounter for screening mammogram for breast cancer DIABETES FOOT EXAM Routine 12/28/2023 DIABETES EYE EXAM Routine 07/05/2023 HEPATITIS C SCREENING Routine 12/23/2012 from Last 3 Months or Most Recently Relevant to Health Maintenance Results * Lipid panel with reflex to direct LDL (01/08/2025 8:17 AM EDT) [facility] Cholesterol 129 0 - 200 mg/dL LAB CHEMISTRY METHOD 01/08/2025 10:39 AM EDT [facility] Triglycerides 75 0 - 150 mg/dL LAB CHEMISTRY METHOD 01/08/2025 10:39 AM EDT [facility] HDL 52 >=40 mg/dL LAB CHEMISTRY METHOD 01/08/2025 10:39 AM EDT [facility] LDL Calculated 62 0 - 100 mg/dL LAB CHEMISTRY METHOD 01/08/2025 10:39 AM EDT [facility] VLDL Cholesterol Javier 15 mg/dL LAB CHEMISTRY METHOD 01/08/2025 10:39 AM EDT [facility] Non HDL Chol. (LDL+VLDL) 77 <145 mg/dL LAB CHEMISTRY METHOD 01/08/2025 10:39 AM EDT [facility] Chol/HDL Ratio 2.5 0.0 - 4.4 LAB CHEMISTRY METHOD 01/08/2025 10:39 AM EDT [facility] Blood Venous blood specimen / Unknown Venipuncture / Unknown 01/08/2025 8:17 AM EDT 01/08/2025 8:17 AM EDT us Harika Maciel MD LAB BLOOD ORDERABL ES Final Result [facility] [address] [place] [address], * (ABNORMAL) Microalbumin creatinine urine ratio (01/08/2025 8:17 AM EDT) Creatinine, Urine 159.0 mg/dL LAB CHEMISTRY METHOD 01/08/2025 11:30 AM EDT [facility] Microalb, Ur 37.0(H) 0.0 - 29.0 mg/L LAB CHEMISTRY METHOD 01/08/2025 11:30 AM EDT [facility] Microalb/Crea t Ratio 23 <30 mg/g creat LAB CHEMISTRY METHOD 01/08/2025 11:30 AM EDT [facility] Urine Urine specimen obtained by clean catch procedure / Unknown Non-blood Collection / Unknown 01/08/2025 8:17 AM EDT 01/08/2025 8:17 AM EDT Harika Maciel MD LAB URINE ORDERABL ES Final Result Performing Organization Address [facility]/ZIP Co de Phone Number [facility] [address] [place] [address], [place] [phone] * Hemoglobin A1c (01/08/2025 8:17 AM EDT) [facility] Hemoglobin A1C 6.3 <6.5 % LAB CHEMISTRY METHOD 01/08/2025 11:12 AM EDT [facility] Mean Bld Glu Estim. 134 mg/dL LAB CHEMISTRY METHOD 01/08/2025 11:12 AM EDT [facility] Blood Venous blood specimen / Unknown Venipuncture / Unknown 01/08/2025 8:17 AM EDT 01/08/2025 8:17 AM EDT Harika Maciel MD LAB BLOOD ORDERABL ES Final Result Performing Organization Address [facility]/ZIP Co de Phone Number [facility] [address] [place] [address], [place] [phone] * (ABNORMAL) Comprehensive metabolic panel (01/08/2025 8:17 AM EDT) [facility] Sodium 138 133 - 145 mmol/L LAB CHEMISTRY METHOD 01/08/2025 10:39 AM EDT [facility] Potassium 4.7 3.5 - 5.5 mmol/L LAB CHEMISTRY METHOD 01/08/2025 10:39 AM EDT [facility] Chloride 108 96 - 110 mmol/L LAB CHEMISTRY METHOD 01/08/2025 10:39 AM EDT [facility] CO2 24 21 - 32 mmol/L LAB CHEMISTRY METHOD 01/08/2025 10:39 AM EDT [facility] Anion Gap 6 3 - 11 LAB CHEMISTRY METHOD 01/08/2025 10:39 AM [facility] Glucose 97 70 - 100 mg/dL LAB CHEMISTRY METHOD 01/08/2025 10:39 AM [facility] BUN 21 5 - 25 mg/dL LAB CHEMISTRY METHOD 01/08/2025 10:39 AM [facility] Creatinine 1.33(H) 0.50 - 1.10 mg/dL LAB CHEMISTRY METHOD 01/08/2025 10:39 AM [facility] eGFR 45(L) >=60 mL/min/1. 73m2 LAB CHEMISTRY METHOD 01/08/2025 10:39 AM [facility] Comment:Calculation based on the Chronic Kidney Disease Epidemiology Collaboration (CKD-EPI) equation refit without adjustment for race. BUN/Creatinine Ratio 15.8 LAB CHEMISTRY METHOD 01/08/2025 10:39 AM [facility] Calcium 9.0 8.5 - 10.5 mg/dL LAB CHEMISTRY METHOD 01/08/2025 10:39 AM [facility] AST (SGOT) 20 10 - 42 unit/L LAB CHEMISTRY METHOD 01/08/2025 10:39 AM [facility] ALT (SGPT) 24 10 - 60 unit/L LAB CHEMISTRY METHOD 01/08/2025 10:39 AM [facility] Alkaline Phosphatase 63 42 - 121 unit/L LAB CHEMISTRY METHOD 01/08/2025 10:39 AM [facility] Total Protein 6.8 6.0 - 8.0 g/dL LAB CHEMISTRY METHOD 01/08/2025 10:39 AM [facility] Albumin 3.6 3.2 - 5.0 g/dL LAB CHEMISTRY METHOD 01/08/2025 10:39 AM [facility] Total Bilirubin 0.8 0.0 - 1.4 mg/dL LAB CHEMISTRY METHOD 01/08/2025 10:39 AM EDT [facility] Blood Venous blood specimen / Unknown Venipuncture / Unknown 01/08/2025 8:17 AM EDT 01/08/2025 8:17 AM EDT us Harika Maciel MD LAB BLOOD ORDERABL ES Final Result [facility]) [facility] [address] [place] [address], [place] [phone] * MG Mammo Digital Screening w Pankaj bilat (09/18/2024 7:47 AM EST) Anatomical Region Laterality Modality Breast Bilateral Mammography 09/18/2024 11:1 4 AM EST Impressions 09/18/2024 11:16 AM EST No mammographic evidence for malignancy. BI-RADS CATEGORY: 1 - NEGATIVE RECOMMENDATION: Screening bilateral mammogram is recommended in 1 year. Mammo Location: [facility], [address] [place] [address], [id number], . -------- FINAL REPORT -------- Dictated By: Elida Justice Dictated Date: 09/18/2024 11:14 ET Assigned Physician: Elida Justice Reviewed and Electronically Signed By: Elida Justice Signed Date: 09/18/2024 11:16 ET Workstation ID: [id number] Transcribed By: Self Edit Transcribed Date: 09/18/2024 [...] is recommended in 1 year. Mammo Location: [facility], [address] [place] [address], [address], . -------- FINAL REPORT -------- Dictated By: Elida Justice Dictated Date: 09/18/2024 11:14 ET Assigned Physician: Elida Justice Reviewed and Electronically Signed By: Elida Justice Signed Date: 09/18/2024 11:16 ET Workstation ID: [id number] Transcribed By: Self Edit Transcribed Date: 09/18/2024 11:14 ET Harika Maciel MD IMG BI PROCEDURES Final Result * Diabetes Foot Exam (12/28/2023) Pathologist [facility] Diabetes: Annual Foot Exam Abstracted Historical Provider HEALTH MAINTENANCE Final Result * Diabetes Eye Exam (07/05/2023) [facility] Diabetes: Annual Retina Eye Exam Abstracted Historical Provider HEALTH MAINTENANCE Final Result * Hepatitis C Screening (12/23/2012) [facility] Hepatitis C Screening Abstracted [facility] Provider HEALTH MAINTENANCE Final Result from Last 3 Months or Most Recently Relevant to Health Maintenance Insurance [facility] Care Teams Lease Administration Supervisor Relationship Specialty Start Date End Date Harika Maciel MD [address] [place] [phone] PCP - General Internal Medicine 09/18/24
== END 2025-04-02 10:05 | disposition home or self-care (01) ==
LOC: HO.HOS 09:39
PROVIDERS: PCP Internal Medicine; Visit Provider Orthopaedic Surgery
DX: S62.111A Displaced fracture of triquetrum [cuneiform] bone, right wrist, initial encounter for closed fracture (principal); S62.318A Displaced fracture of base of other metacarpal bone, initial encounter for closed fracture; R20.0 Anesthesia of skin; R20.2 Paresthesia of skin; E11.9 Type 2 diabetes mellitus without complications
CPT/HCPCS: 99213

== ENCOUNTER → 2025-04-02 09:41 | Outpatient (BNV) | payer BC, SELFPAY | PROVIDERS: Visit Provider Radiology Diagnostic Radiology | DX: M19.041 Primary osteoarthritis, right hand (principal) | CPT/HCPCS: 73110 ==